=== PATIENT | male | born 1945 | race Caucasian/White ===

== ENCOUNTER 2021-03-14 09:37 | Emergency (ER) | payer MEDICARE ==
[~2021-03-14] VITALS: Ht 167.6 cm; Wt 77.1 kg
[2021-03-14] MEDS ORDERED: LATANOPROST 0.7.5 ML OU (10:14)
[2021-03-14] MEDS ORDERED: ZETIA10 MG PO (10:14)
[2021-03-14] MEDS ORDERED: METFORMIN HCL500 MG PO (10:14)
[2021-03-14] MEDS ORDERED: PRINIVIL20 MG PO (10:14)
[2021-03-14] MEDS ORDERED: LIPITOR20 MG PO (10:14)
[2021-03-14] MEDS ORDERED: CLOPIDOGREL75 MG PO (10:14)
[2021-03-14] MEDS ORDERED: GLIMEPIRIDE2 MG PO (10:14)
[2021-03-14] MEDS ORDERED: AMLODIPINE BESYL5 MG PO (10:14)
[2021-03-14 10:41] LABS: HEMATOCRIT 36.3 % (38.2-49.6); HEMOGLOBIN 12.3 g/dL (14.0-18.0); LYMPHOCYTES # (AUTO) 0.6 (1.0-3.2); MEAN CORPUSCULAR HEMOGLOBIN 32.1 pg (28-32); MEAN CORPUSCULAR HGB CONC 33.9 g/dL (31-35); MEAN CORPUSCULAR VOLUME 94.8 fL (81-99); MONOCYTES # (AUTO) 0.2 (0.2-0.8); MONOCYTES % 3.6 % (4.4-11.3); NEUTROPHILS # (AUTO) 3.7 (2.1-6.9); NEUTROPHILS % 82.9 % (38.7-80.0); PLATELET COUNT 150 x10e3/uL (140-360); RED BLOOD COUNT 3.83 x10e6/uL (4.3-5.7); RED CELL DISTRIBUTION WIDTH 14.3 % (11.7-14.4)
[2021-03-14 11:12] LABS: ALBUMIN 3.1 g/dL (3.5-5.0); ALBUMIN/GLOBULIN RATIO 0.8 (0.8-2.0); CALCIUM 7.1 mg/dL (8.4-10.2); CREATININE, SERUM 1.61 mg/dL (0.72-1.25)
[2021-03-14 11:18] LABS: B-TYPE NATRIURETIC PEPTIDE2 51.7 pg/mL (0-100)
[2021-03-14 11:40] LABS: CREATINE KINASE MB 1.4 ng/mL (0-5.0)
[2021-03-14 12:48] LABS: CLARITY,URINE CLEAR (CLEAR); COLOR,URINE YELLOW (YELLOW)
[2021-03-14 12:49] LABS: KETONES,URINE TRACE (NEGATIVE); LEUKOCYTE ESTERASE ,URINE NEGATIVE (NEGATIVE); NITRITE,URINE NEGATIVE (NEGATIVE); PROTEIN,URINE DIPSTICK >=300 (NEGATIVE); URINE UROBILINOGEN 0.2 mg/dL (0.2 - 1)
[2021-03-14 12:56] LABS: BACTERIA,URINE MANY /HPF; EPITHELIAL CELLS,URINE FEW /LPF; HYALINE CASTS 0-1 (0-1); WBC,URINE (MAN) 21-50 /HPF (0-5)
[2021-03-14 12:57] LABS: RENAL EPITHELIAL CELLS,URINE FEW
[2021-03-14] MEDS ORDERED: DEXAMETHASONE SOD PHOS 10 MG/1 ML VIAL IV STA (13:02)
[2021-03-14] MEDS ORDERED: AZITHROMYCIN 500MG/NS 250 ML 250 ML IV STA (13:02)
[2021-03-14 13:38] VITALS: BP 148/77
== END 2021-03-14 14:57 | disposition other institution (70) ==
LOC: ER 09:44
DX: U07.1 COVID-19 (principal); R05 Cough; R53.1 Weakness; J44.9 Chronic obstructive pulmonary disease, unspecified; R94.4 Abnormal results of kidney function studies; I10 Essential (primary) hypertension; F17.210 Nicotine dependence, cigarettes, uncomplicated
CPT/HCPCS: 36415; 70450; 71250; 80053; 81001; 82550; 82553; 83605; 83880; 84484; 85025; 87040; 93005; 99284; J0456; J1100; U0002